=== PATIENT | female | born 1970 | race Caucasian/White ===

== ENCOUNTER 2023-04-17 01:53 | Emergency (ER) | payer OTHER ==
[~2023-04-17] VITALS: Ht 162.6 cm; Wt 85.0 kg
[2023-04-17 02:05] VITALS: BP 134/66; PULSE 103; RESP 18; TEMP 98; O2SAT 98
[2023-04-17] MEDS ORDERED: BACITRACIN ZINC OINT UDPKT TOP ONE (04:30)
[2023-04-17] MEDS ORDERED: LIDOCAINE HCL/PF 1% 10 MG/ML 5ML VIAL INFIL ONE (04:30)
[2023-04-17] MEDS ORDERED: TETANUS, DIPHTHERIA, PERTUSSIS VAC/PF 0.5ML (>10YR OLD) IM ONE (04:30)
== END 2023-04-17 06:06 | disposition home or self-care (01) ==
LOC: ER 01:53
DX: S91.311A Laceration without foreign body, right foot, initial encounter (principal); Z98.890 Other specified postprocedural states; X58.XXXA Exposure to other specified factors, initial encounter; Y93.89 Activity, other specified; Y92.89 Other specified places as the place of occurrence of the external cause; Y99.8 Other external cause status
CPT/HCPCS: 99283; 90715; 90471; J3490